=== PATIENT | female | born 1995 | race African-American/Black ===

== ENCOUNTER 2020-10-05 17:31 | Emergency (ER) | payer OTHER | END 2020-10-05 18:31 | disposition home or self-care (01) | LOC: JERFT 17:31 | DX: L08.89 Other specified local infections of the skin and subcutaneous tissue (principal) | CPT/HCPCS: 99283-25 ==

== ENCOUNTER 2020-10-29 10:14 | Emergency (ER) | payer OTHER ==
[2020-10-29 10:27] VITALS: BP 102/69; PULSE 104; TEMP 98.2; BMI 33.3
[2020-10-29 11:49] LABS: HCG,QUALITATIVE URINE Positive
[2020-10-29 11:52] LABS: EPI CELLS >36 /uL (0-25.1); HYALINE CASTS 3 /uL (0-3.1); PH,URINE 7.5 (5.0-8.0); URINE APPEARANCE CLOUDY; URINE BACTERIA 1216 /uL (0-1359); URINE BILIRUBIN NEGATIVE (NEGATIVE); URINE COLOR YELLOW; URINE GLUCOSE (UA) NEGATIVE (NEGATIVE); URINE KETONE NEGATIVE (NEGATIVE); URINE LEUK ESTERASE NEGATIVE (NEGATIVE); URINE NITRITE NEGATIVE (NEGATIVE); URINE PROTEIN NEGATIVE (NEGATIVE); URINE UROBILINOGEN 0.2 mg/dL (0.2-1.0); URINE WBC 19 /uL (0-25.8)
[2020-10-29 15:30] LABS: URINE RBC 24.4 /uL (0-23.9)
== END 2020-10-29 12:11 | disposition home or self-care (01) ==
LOC: JERFT 10:14 → JER 10:14 → JERFT 12:11
DX: Z32.01 Encounter for pregnancy test, result positive (principal)
CPT/HCPCS: 81003; 84703; 87086; 99283-25

== ENCOUNTER 2021-07-16 13:16 | Emergency (ER) | payer OTHER ==
[2021-07-16 13:47] VITALS: TEMP 98.8; BMI 32.3
[2021-07-16 14:45] LABS: BASO % 0.4 % (0-2.0); EOS % 0.5 % (0-4.5); HEMATOCRIT 34.1 % (32.4-45.2); LYMPH % 18.4 % (8-40); MCH 20.6 pg (25.7-33.7); MCHC 32.4 g/dl (32.0-36.0); MEAN CELL VOLUME 63.6 fl (80-96); MEAN PLT VOLUME 8.7 fl (7.5-11.1); MONO % 7.9 % (3.8-10.2); NEUT % 72.8 % (42.8-82.8); PLATELET COUNT 317 10^3/uL (134-434); RBC 5.36 M/mm3 (3.60-5.2); RDW 17.3 % (11.6-15.6); WHITE BLOOD COUNT 11.4 K/mm3 (4.0-10.0)
[2021-07-16 15:01] LABS: URINE APPEARANCE CLEAR; URINE BILIRUBIN NEGATIVE (NEGATIVE); URINE COLOR YELLOW; URINE GLUCOSE (UA) NEGATIVE (NEGATIVE); URINE KETONE NEGATIVE (NEGATIVE); URINE LEUK ESTERASE NEGATIVE (NEGATIVE); URINE NITRITE NEGATIVE (NEGATIVE); URINE PROTEIN NEGATIVE (NEGATIVE); URINE UROBILINOGEN 0.2 mg/dL (0.2-1.0)
[2021-07-16 15:03] LABS: CALCIUM 9.2 mg/dL (8.5-10.1)
[2021-07-16 15:03] LABS: HCG,QUALITATIVE URINE Negative
[2021-07-16 15:04] LABS: BLOOD UREA NITROGEN 9.5 mg/dL (7-18)
[2021-07-16 15:06] LABS: ANISOCYTOSIS 2+; MACROCYTOSIS 0; PLATELET ESTIMATE NORMAL
[2021-07-16 15:07] LABS: CREATININE 0.8 mg/dL (0.55-1.3)
[2021-07-16 15:08] LABS: BILIRUBIN,TOTAL 0.2 mg/dL (0.2-1)
[2021-07-16 15:09] LABS: TOT PROT 8.6 g/dl (6.4-8.2)
[2021-07-16 16:04] VITALS: BP 121/78; PULSE 99
== END 2021-07-16 16:09 | disposition home or self-care (01) ==
LOC: JER 13:16
DX: R07.9 Chest pain, unspecified (principal)
CPT/HCPCS: 36415; 71046-TC-FY; 80053; 81003; 84703; 85025; 99283-25; C9803; U0003; U0005